=== PATIENT | female | born 1965 | race Caucasian/White ===

== ENCOUNTER → 2018-05-22 | Outpatient (CLI) | payer BC ==
[~2018-05-22] VITALS: Ht 165.1 cm; Wt 99.5 kg
[~2018-05-22] MED LIST: CYMBALTA30 M1 PO; IBU800 M1 PO
[2018-05-22 13:00] VITALS: BP 120/92
[2018-05-22 13:14] LABS: HEMATOCRIT 46.1 % (37.0-47.0); HEMOGLOBIN 15.1 g/dL (12.5-16.0); MEAN PLATELET VOLUME 9.9 fl (7.4-10.4); RED BLOOD COUNT 5.57 M/mm3 (4.10-5.30); RED CELL DISTRIBUTION WIDTH 14.4 % (11.5-14.5); WHITE BLOOD COUNT 3.4 K/mm3 (4.8-10.8)
[2018-05-22 13:59] LABS: ALBUMIN 4.6 g/dL (3.5-5.0); CALCIUM 9.7 mg/dL (8.4-10.2); POTASSIUM 3.8 mmol/L (3.6-5.0); TOTAL BILIRUBIN 1.4 mg/dL (0.2-1.3); TOTAL PROTEIN 8.5 g/dL (6.3-8.2)
[2018-05-22 14:39] VITALS: BP 144/76
== END ==
LOC: AMSURD 11:34
PROVIDERS: Family Medicine
DX: E86.0 Dehydration (principal)
CPT/HCPCS: J3480; J7030